=== PATIENT | male | born 1965 | race Caucasian/White ===

== ENCOUNTER 2020-12-29 05:52 | Emergency (ER) | payer OTHER ==
[2020-12-29 05:59] VITALS: BP 130/82; PULSE 67; TEMP 98.1
[2020-12-29] MEDS ORDERED: DEXAMETHASONE SOD PHOSPHATE 10 MG/ML 1 ML VIAL IM STA (06:10)
--- NOTE | 2020-12-29 06:34 | XR ---
EXAMINATION TYPE: XR chest 2V DATE OF EXAM: 12/29/2020 COMPARISON: NONE HISTORY: Cough. TECHNIQUE: Frontal and lateral views of the chest are obtained. FINDINGS: There is no focal air space opacity, pleural effusion, or pneumothorax seen. The cardiac silhouette size is within normal limits. The osseous structures are intact. IMPRESSION: No suspicious acute pulmonary process.
[2020-12-29 06:37] VITALS: RESP 16
--- NOTE | 2020-12-29 07:02 | ED ---
General Adult HPI - General Chief complaint: Shortness of Breath Stated complaint: SOB,dizziness Time Seen by Provider: 12/29/20 06:01 Source: patient, RN notes reviewed Mode of arrival: ambulatory Limitations: no limitations - History of Present Illness Initial comments: Is a 55-year-old male that presents to the emergency department complaining of upper respiratory tract symptoms such as cough and mild shortness of breath. Patient notes that he is running RSV positive grandkid and another child that is displaying upper respiratory tract symptoms including cough with a mildly productive cough. Patient notes he does have a smoking history is been told he has chronic bronchitis. Patient was otherwise well-appearing. He was afebrile. He denied chest pain headache nausea vomiting diarrhea constipation fever fatigue chills. - Related Data Allergies Allergy/AdvReac Type Severity Reaction Status Date / Time No Known Allergies Allergy Verified 12/29/20 05:59 Review of Systems ROS Statement: Those systems with pertinent positive or pertinent negative responses have been documented in the HPI. ROS Other: All systems not noted in ROS Statement are negative. Past Medical History Past Medical History: No Reported History History of Any Multi-Drug Resistant Organisms: None Reported Past Surgical History: No Surgical Hx Reported Past Psychological History: No Psychological Hx Reported Smoking Status: Current every day smoker Past Alcohol Use History: None Reported Past Drug Use History: None Reported General Exam Limitations: no limitations General appearance: alert, in no apparent distress Head exam: Present: atraumatic, normocephalic, normal inspection Eye exam: Present: normal appearance, PERRL, EOMI. Absent: scleral icterus, conjunctival injection, periorbital swelling ENT exam: Present: normal exam, mucous membranes moist Neck exam: Present: normal inspection Respiratory exam: Present: normal lung sounds bilaterally, wheezes (Mild expiratory wheezes). Absent: respiratory distress, rales, rhonchi, stridor Cardiovascular Exam: Present: regular rate, normal rhythm, normal heart sounds. Absent: systolic murmur, diastolic murmur, rubs, gallop, clicks GI/Abdominal exam: Present: soft, normal bowel sounds. Absent: distended, tenderness, guarding, rebound, rigid Extremities exam: Present: normal inspection, full ROM, normal capillary refill. Absent: tenderness, pedal edema, joint swelling, calf tenderness Neurological exam: Present: alert, oriented X3 Psychiatric exam: Present: normal affect, normal mood Skin exam: Present: warm, dry, intact, normal color. Absent: rash Course Vital Signs 12/29/20 12/29/20 05:55 06:30 Temperature 98.1 F Pulse Rate 67 Respiratory 26 H 16 Rate Blood Pressure 130/82 O2 Sat by Pulse 99 Oximetry Medical Decision Making - Medical Decision Making 55-year-old male with a cough and upper respiratory tract symptoms for the past 4 days. Covid test, RSV test, chest x-ray, 10 mg of Decadron ordered. Covid and RSV both negative. Chest x-ray shows no acute cardiopulmonary process. Patient most likely has an upper respiratory tract infection or other cause. Case discussed with Dr. Howard, patient discharge home with follow-up primary care. - Lab Data Lab Results 12/29/20 12/29/20 Range/Units 06:28 06:28 Coronavirus (PCR) Not Detected (Not Detectd) RSV (PCR) Negative (Negative) - Radiology Data Radiology results: report reviewed, image reviewed Chest x-ray: No acute cardiopulmonary process. Disposition Clinical Impression: Upper respiratory tract infection Disposition: HOME SELF-CARE Condition: Stable Instructions (If sedation given, give patient instructions): Upper Respiratory Infection (ED), Chronic Bronchitis (ED) Additional Instructions: Please return to the Emergency Department if symptoms worsen or any other concerns. Follow-up with primary care 1-2 days. Is patient prescribed a controlled substance at d/c from ED?: No Referrals: Cyrus Ferreira MD [Primary Care Provider] - 1-2 days Time of Disposition: 07:02
== END 2020-12-29 07:17 | disposition home or self-care (01) ==
LOC: EC 05:52 → SUPCPDRO 05:52 → EC 07:17
DX: J06.9 Acute upper respiratory infection, unspecified (principal); Z20.822 Contact with and (suspected) exposure to COVID-19; F17.200 Nicotine dependence, unspecified, uncomplicated
CPT/HCPCS: 99285; 96372; 87634; 87635; 71046; J1100

== ENCOUNTER 2022-01-18 16:05 | Emergency (ER) | payer OTHER ==
[2022-01-18 16:11] VITALS: TEMP 101.3
[2022-01-18] MEDS ORDERED: ALBUTEROL HFA INHALER INHALATION STA (16:43)
[2022-01-18] MEDS ORDERED: IBUPROFEN 600 MG TAB PO STA (16:44)
[2022-01-18] MEDS ORDERED: ACETAMINOPHEN TAB 500 MG TAB PO STA (16:44)
[2022-01-18] MEDS ORDERED: methylPREDNISolone SOD SUCCI 125 MG/2 ML VIAL IV STA (16:45)
--- NOTE | 2022-01-18 16:48 | ED ---
General Adult HPI - General Chief complaint: Shortness of Breath Stated complaint: MAYITO Time Seen by Provider: 01/18/22 16:12 Source: patient, EMS, RN notes reviewed Mode of arrival: EMS Limitations: no limitations - History of Present Illness Initial comments: Patient is a pleasant 56-year-old male presenting to the emergency department with concerns with not feeling well. Onset of symptoms was a past 2 days. Patient has had fatigue and chills. Patient has myalgias. Patient has had fevers. Minimal cough. Patient does feel short of breath. No nasal congestion. Patient did have a sore throat however that is not too bad at this time. Decreased oral intake. Patient feels concerning could be dehydrated. - Related Data Previous Rx's Medication Instructions Recorded Albuterol Inhaler [Ventolin Hfa 2 puff INHALATION Q4HR PRN #1 each 01/18/22 Inhaler] Allergies Allergy/AdvReac Type Severity Reaction Status Date / Time No Known Allergies Allergy Verified 01/18/22 18:47 Review of Systems ROS Statement: Those systems with pertinent positive or pertinent negative responses have been documented in the HPI. ROS Other: All systems not noted in ROS Statement are negative. Constitutional: Reports: fever, chills Eyes: Denies: eye pain ENT: Denies: ear pain Respiratory: Reports: as per HPI, dyspnea Cardiovascular: Denies: chest pain Endocrine: Reports: fatigue Gastrointestinal: Denies: vomiting Genitourinary: Denies: dysuria Musculoskeletal: Denies: back pain Skin: Denies: rash Neurological: Denies: weakness Past Medical History Past Medical History: Cancer, COPD Additional Past Medical History / Comment(s): skin cancer History of Any Multi-Drug Resistant Organisms: None Reported Past Surgical History: No Surgical Hx Reported Past Psychological History: No Psychological Hx Reported Smoking Status: Current every day smoker Past Alcohol Use History: None Reported Past Drug Use History: None Reported General Exam Limitations: no limitations General appearance: alert Head exam: Present: normocephalic Eye exam: Present: normal appearance ENT exam: Present: normal oropharynx Neck exam: Present: normal inspection Respiratory exam: Present: wheezes Cardiovascular Exam: Present: regular rate, normal rhythm GI/Abdominal exam: Present: soft. Absent: tenderness Extremities exam: Present: normal inspection. Absent: pedal edema, calf tenderness Neurological exam: Present: alert Psychiatric exam: Present: normal affect, normal mood Skin exam: Present: normal color Course Vital Signs 01/18/22 01/18/22 01/18/22 16:06 16:11 18:47 Temperature 101.3 F H Pulse Rate 92 86 Respiratory 24 22 16 Rate Blood Pressure 133/79 118/77 O2 Sat by Pulse 100 97 Oximetry EKG Findings - EKG Comments: EKG Findings:: Sinus rhythm 94. AR 135. QRS 96. QT 3:30. QTC 381. Normal axis. Normal QRS. No acute ST change. EKG is interpreted by myself. - EKG Results: EKG: interpreted by SHEYLA Medical Decision Making - Medical Decision Making Patient reevaluated and significantly improved. Patient feeling much better and requesting discharge. Patient and family updated on results and need for follow-up. - Lab Data Result diagrams: 01/18/22 17:02 01/18/22 17:02 Lab Results 01/18/22 01/18/22 01/18/22 Range/Units 17:02 17:02 17:02 WBC 7.3 (3.8-10.6) k/uL RBC 5.37 (4.30-5.90) m/uL Hgb 17.1 (13.0-17.5) gm/dL Hct 50.9 (39.0-53.0) % MCV 94.8 (80.0-100.0) fL MCH 31.9 (25.0-35.0) pg MCHC 33.7 (31.0-37.0) g/dL RDW 13.5 (11.5-15.5) % Plt Count 165 (150-450) k/uL MPV 9.8 Neutrophils % EQUIPMENT OPERAT0R Neutrophils % (Manual) 67 % Lymphocytes % EQUIPMENT OPERAT0R Lymphocytes % (Manual) 26 % Monocytes % EQUIPMENT OPERAT0R Monocytes % (Manual) 7 % Eosinophils % EQUIPMENT OPERAT0R Basophils % EQUIPMENT OPERAT0R Neutrophils # EQUIPMENT OPERAT0R Neutrophils # (Manual) 4.89 (1.3-7.7) k/uL Lymphocytes # EQUIPMENT OPERAT0R Lymphocytes # (Manual) 1.90 (1.0-4.8) k/uL Monocytes # EQUIPMENT OPERAT0R Monocytes # (Manual) 0.51 (0-1.0) k/uL Eosinophils # EQUIPMENT OPERAT0R Basophils # EQUIPMENT OPERAT0R Nucleated RBCs 0 (0-0) /100 WBC Polychromasia Present PT 10.7 (9.0-12.0) sec INR 1.0 (<1.2) APTT 31.1 H (22.0-30.0) sec D-Dimer 0.54 (<0.60) mg/L FEU Sodium 135 L (137-145) mmol/L Potassium 4.4 (3.5-5.1) mmol/L Chloride 107 (98-107) mmol/L Carbon Dioxide 19 L (22-30) mmol/L Anion Gap 9 mmol/L BUN 14 (9-20) mg/dL Creatinine 0.88 (0.66-1.25) mg/dL Est GFR (CKD-EPI)AfAm >90 (>60 ml/min/1.73 sqM) Est GFR (CKD-EPI)NonAf >90 (>60 ml/min/1.73 sqM) Glucose 83 (74-99) mg/dL Plasma Lactic Acid Corey (0.7-2.0) mmol/L Calcium 8.9 (8.4-10.2) mg/dL Magnesium 1.9 (1.6-2.3) mg/dL Total Bilirubin 0.6 (0.2-1.3) mg/dL AST 29 (17-59) U/L ALT 18 (4-49) U/L Alkaline Phosphatase 69 (38-126) U/L Total Protein 6.4 (6.3-8.2) g/dL Albumin 3.9 (3.5-5.0) g/dL Coronavirus (PCR) (Not Detectd) Influenza Type A RNA (Not Detectd) Influenza Type B (PCR) (Not Detectd) 01/18/22 01/18/22 01/18/22 Range/Units 17:02 Unknown Unknown WBC (3.8-10.6) k/uL RBC (4.30-5.90) m/uL Hgb (13.0-17.5) gm/dL Hct (39.0-53.0) % MCV (80.0-100.0) fL MCH (25.0-35.0) pg MCHC (31.0-37.0) g/dL RDW (11.5-15.5) % Plt Count (150-450) k/uL MPV Neutrophils % Neutrophils % (Manual) % Lymphocytes % Lymphocytes % (Manual) % Monocytes % Monocytes % (Manual) % Eosinophils % Basophils % Neutrophils # Neutrophils # (Manual) (1.3-7.7) k/uL Lymphocytes # Lymphocytes # (Manual) (1.0-4.8) k/uL Monocytes # Monocytes # (Manual) (0-1.0) k/uL Eosinophils # Basophils # Nucleated RBCs (0-0) /100 WBC Polychromasia PT (9.0-12.0) sec INR (<1.2) APTT (22.0-30.0) sec D-Dimer (<0.60) mg/L FEU Sodium (137-145) mmol/L Potassium (3.5-5.1) mmol/L Chloride (98-107) mmol/L Carbon Dioxide (22-30) mmol/L Anion Gap mmol/L BUN (9-20) mg/dL Creatinine (0.66-1.25) mg/dL Est GFR (CKD-EPI)AfAm (>60 ml/min/1.73 sqM) Est GFR (CKD-EPI)NonAf (>60 ml/min/1.73 sqM) Glucose (74-99) mg/dL Plasma Lactic Acid Corey 1.8 (0.7-2.0) mmol/L Calcium (8.4-10.2) mg/dL Magnesium (1.6-2.3) mg/dL Total Bilirubin (0.2-1.3) mg/dL AST (17-59) U/L ALT (4-49) U/L Alkaline Phosphatase (38-126) U/L Total Protein (6.3-8.2) g/dL Albumin (3.5-5.0) g/dL Coronavirus (PCR) Not Detected (Not Detectd) Influenza Type A RNA Detected H (Not Detectd) Influenza Type B (PCR) Not Detected (Not Detectd) - Radiology Data Interpreted by me: Chest x-ray reveals no acute process. Disposition Clinical Impression: Influenza Disposition: HOME SELF-CARE Condition: Stable Instructions (If sedation given, give patient instructions): Influenza (ED) Additional Instructions: [id number]-[id number] Tylenol or Motrin as needed. Please do follow-up with primary care physician in the next couple days for recheck. Return for difficulty breathing, worsening or change in symptoms or any other concerns. Prescription for inhaler sent to pharmacy. Prescriptions: Albuterol Inhaler [Ventolin Hfa Inhaler] 2 puff INHALATION Q4HR PRN #1 each PRN Reason: Dyspnea Is patient prescribed a controlled substance at d/c from ED?: No Referrals: Cyrus Ferreira MD [Primary Care Provider] - 1-2 days Time of Disposition: 18:58
[2022-01-18 17:16] LABS: ALT 18 U/L (4-49); AST 29 U/L (17-59); African American GFR (CKD) >90 (>60 ml/min/1.73 sqM); Albumin 3.9 g/dL (3.5-5.0); Alkaline Phosphatase 69 U/L (38-126); Anion Gap 9 mmol/L; Blood Urea Nitrogen 14 mg/dL (9-20); Calcium 8.9 mg/dL (8.4-10.2); Carbon Dioxide 19 mmol/L (22-30); Chloride 107 mmol/L (98-107); Glucose 83 mg/dL (74-99); Magnesium 1.9 mg/dL (1.6-2.3); Non-African American GFR(CKD) >90 (>60 ml/min/1.73 sqM); Potassium 4.4 mmol/L (3.5-5.1); Sodium 135 mmol/L (137-145); Total Bilirubin 0.6 mg/dL (0.2-1.3); Total Protein 6.4 g/dL (6.3-8.2)
[2022-01-18 17:27] LABS: HCT 50.9 % (39.0-53.0); HGB 17.1 gm/dL (13.0-17.5); MCH 31.9 pg (25.0-35.0); MCHC 33.7 g/dL (31.0-37.0); MCV 94.8 fL (80.0-100.0); Mean Platelet Volume 9.8; Platelet Count 165 k/uL (150-450); RBC 5.37 m/uL (4.30-5.90); RDW 13.5 % (11.5-15.5); WBC 7.3 k/uL (3.8-10.6)
[2022-01-18 17:30] LABS: Partial Thromboplastin Time 31.1 sec (22.0-30.0); Prothrombin Time 10.7 sec (9.0-12.0)
[2022-01-18 18:04] LABS: Monocytes # (M) 0.51 k/uL (0-1.0); Neutrophils # (M) 4.89 k/uL (1.3-7.7); Neutrophils % (M) 67 %; Nucleated Red Blood Cells 0 /100 WBC (0-0); Polychromasia Present; Total Cells Counted 100
--- NOTE | 2022-01-18 18:08 | XR ---
EXAMINATION TYPE: XR chest 2V DATE OF EXAM: 01/18/2022 5:13 PM COMPARISON: Chest radiographs from 12/29/2020 TECHNIQUE: XR chest 2V Frontal and lateral views of the chest. CLINICAL INDICATION:Male, 56 years old with history of difficulty breathing; FINDINGS: Lungs/Pleura: There is no evidence of pleural effusion, focal consolidation, or pneumothorax. Pulmonary vascularity: Unremarkable. Heart/mediastinum: Cardiomediastinal silhouette is unremarkable. Musculoskeletal: No acute osseous pathology. IMPRESSION: No acute cardiopulmonary disease/process.
[2022-01-18 18:49] VITALS: BP 118/77; PULSE 86; RESP 16
== END 2022-01-18 19:15 | disposition home or self-care (01) ==
LOC: EC 16:05
DX: J10.1 Influenza due to other identified influenza virus with other respiratory manifestations (principal); J44.9 Chronic obstructive pulmonary disease, unspecified; F17.200 Nicotine dependence, unspecified, uncomplicated; Z79.899 Other long term (current) drug therapy; Z20.822 Contact with and (suspected) exposure to COVID-19
CPT/HCPCS: 36415; 94640; 93005; 85379; 80053; 83605; 83735; 85025; 85610; 85730; 87040; 87502; 87635; 71046; 99285; 96374; J2930

== ENCOUNTER 2023-06-03 09:45 | Day surgery (SDC) | payer BC ==
[2023-06-02 13:39] VITALS: BMI 35.9
[2023-06-03] MEDS: LACTATED RINGERS 1,000 ML IV SCH (10:14)
[2023-06-03 10:50] VITALS: TEMP 97.9
[2023-06-03] MEDS ORDERED: PROPOFOL 10 MG/ML 20 ML VIAL IV ONE (11:04)
[2023-06-03] MEDS ORDERED: LIDOCAINE 1% INJ 10MG/ML (20 ML MDV) ONE (11:04)
--- NOTE | 2023-06-03 11:37 | P.PCN ---
Date of Procedure: 06/03/23 Procedure(s) Performed: BRIEF HISTORY: Patient is a 57-year-old pleasant White male scheduled for an elective colonoscopy as a part of Screening for colon cancer. PROCEDURE PERFORMED: Colonoscopy With snare polypectomy and Endo Clip placement. PREOPERATIVE DIAGNOSIS: Screening for colon cancer. IV sedation per Anesthesia. PROCEDURE: After informed consent was obtained, the patient, was brought into the endoscopy unit. IV sedation was administered by Anesthesia under continuous monitoring. Digital rectal examination was normal. Initially the Olympus CF-160 flexible video colonoscope was then inserted in the rectum, gradually advanced into the cecum without any difficulty. Careful examination was performed as the scope was gradually being withdrawn. Ileocecal valve and the appendiceal orifice were visualized and appeared normal. Prep was excellent. Mucosa of the cecum, Had a 3 mm polyp that was removed by cold biopsy. In the ascending colon there was a 2.5 cm broad-based polyp that was removed by piecemeal snare polypectomy followed by Endo Clip placement and complete polypectomy accomplished. Rest of theascending colon, transverse colon, descending colon, Appeared normal. In the sigmoid there was a 6 minute a polyp removed by snare polypectomy. In the proximal rectum there were 2 polyps measuring 3 and 4 mm in size removed by snare polypectomy. Rest of thesigmoid colon, and rectum appeared normal. Retroflexion was performed in the rectum and no lesions were seen. The patient tolerated the procedure well. IMPRESSION: 2.5 cm broad-based ascending colon polyp status post piecemeal snare polypectomy followed by Endo Clip placement 3 mm cecal polyp status post cold biopsy 6 mm;Sigmoid polyp status post polypectomy 3 mm 2 rectal polyps status post polypectomy RECOMMENDATIONS: Findings of this examination were discussed with the patient as well as his family. He was advised to follow up with the biopsy results. If the biopsy results adenoma he can have a repeat colonoscopy in 3 years..
[2023-06-03 12:15] VITALS: BP 136/87; PULSE 64; RESP 20
== END 2023-06-03 12:31 | disposition home or self-care (01) ==
LOC: ORWHC2ENDO 09:45
PROVIDERS: ATTEND Internal Medicine Gastroenterology
DX: Z12.11 Encounter for screening for malignant neoplasm of colon (principal); D12.2 Benign neoplasm of ascending colon; D12.0 Benign neoplasm of cecum; D12.5 Benign neoplasm of sigmoid colon; D12.8 Benign neoplasm of rectum; K62.1 Rectal polyp; F17.200 Nicotine dependence, unspecified, uncomplicated; Z79.899 Other long term (current) drug therapy
CPT/HCPCS: 88305; 45380; 45385; J2001; J2704; 45382